=== PATIENT | male | born 1990 | race Caucasian/White ===

== ENCOUNTER 2017-03-27 10:15 | Inpatient (IN) | payer OTHER ==
[2017-03-27 11:20] VITALS: BMI 20.6
--- NOTE | 2017-03-27 15:38 | HP ---
COWS - Scale Resting Pulse: 0= [place] 80 or Below Sweatin=Flushed/Facial Moisture Restless Observation: 1= Difficult to Sit Still Pupil Size: 2= Moderately Dilated Bone or Joint Aches: 2= Severe Diffuse Aches Runny Nose/ Eye Tearin= Runny Nose/Eyes GI Upset > 30mins: 2= Nausea/Diarrhea Tremor Observation: 2= Slight Tremor Visible Yawning Observation: 1= 1-2x During Session Anxiety or Irritability: 2=Irritable/Anxious Goose Flesh Skin: 0=Smooth Skin COWS Score: 16 Admission ROS S - HPI Chief Complaint: Withdrawal sx. Allergies/Adverse Reactions: Allergies Allergy/AdvReac Type Severity Reaction Status Date / Time Fish Containing Products Allergy Severe Swelling Verified 03/27/17 15:32 History of Present Illness: 27 y/o man with a long hx. of heroin dependence is admitted for detox.Pt. has been in previous detox,reports > 6 months drug free. Exam Limitations: No Limitations - Ebola screening Have you traveled outside of the country in the last 21 days: No Have you had contact with anyone from an Ebola affected area: No Have you been sick,other than usual withdrawal symptoms: No Do you have a fever: No - Review of Systems Constitutional: Diaphoresis EENT: reports: Nose Congestion Respiratory: reports: Cough GI: reports: Diarrhea, Nausea, Abdominal cramping : reports: No Symptoms Reported Musculoskeletal: reports: Muscle Pain Integumentary: reports: Sweating Endocrine: reports: No Symptoms Reported Hematology: reports: No Symptoms Reported Psychiatric: reports: No Sypmtoms Reported Other Systems: Reviewed and Negative Patient History - Patient Medical History Hx Anemia: No Hx Asthma: Yes (INTUBATED IN CHILDHOOD ) Hx Chronic Obstructive Pulmonary Disease (COPD): No Hx Cancer: No Hx Cardiac Disorders: No Hx Congestive Heart Failure: No Hx Hypertension: No Hx Hypercholesterolemia: No Hx Pacemaker: No HX Cerebrovascular Accident: No Hx Seizures: No Hx Dementia: No Hx Diabetes: No Hx Gastrointestinal Disorders: No Hx Liver Disease: No Hx Genitourinary Disorders: No Hx Sexually Transmitted Disorders: No Hx Renal Disease (ESRD): No Hx Thyroid Disease: No Hx Human Immunodeficiency Virus (HIV): No Hx Hepatitis C: No Hx Depression: Yes Hx Suicide Attempt: No Hx Bipolar Disorder: Yes Hx Schizophrenia: No - Patient Surgical History Past Surgical History: No Hx Neurologic Surgery: No Hx Cataract Extraction: No Hx Cardiac Surgery: No Hx Lung Surgery: No Hx Breast Surgery: No Hx Breast Biopsy: No Hx Abdominal Surgery: No Hx Appendectomy: No Hx Cholecystectomy: No Hx Genitourinary Surgery: No Hx Section: No Hx Orthopedic Surgery: No Anesthesia Reaction: No - PPD History Previous Implant?: Yes Documented Results: Negative w/proof Date: 08/14/16 PPD to be Administered?: No - Smoking Cessation Smoking history: Current every day smoker Have you smoked in the past 12 months: Yes Aproximately how many cigarettes per day: 20 Cigars Per Day: 0 Hx Chewing Tobacco Use: No Initiated information on smoking cessation: Yes 'Breaking Loose' booklet given: 03/27/17 - Substance & Tx. History Hx Alcohol Use: No Substance Use Type: Heroin Hx Substance Use Treatment: Yes (Detox) - Substances Abused Heroin Route: Inhalation Frequency: Daily Amount used: 12 bags Age of first use: 24 Date of Last Use: 03/27/17 Family Disease History - Family Disease History Family Disease History: Heart Disease: Grandparent, Other: Mother (bipolar ) Admission Physical Exam [facility] - Vital Signs Vital Signs: Vital Signs - 24 hr 03/27/17 11:11 Temperature 96.2 F L Pulse Rate 67 Respiratory 18 Rate Blood Pressure 114/61 - Physical General Appearance: Yes: Irritable, Sweating, Anxious HEENTM: Yes: Nasal Congestion, Rhinorrhea Respiratory: Yes: Chest Non-Tender, Wheezing (Mild expiratory) Neck: Yes: Supple Breast: Yes: Breast Exam Deferred Cardiology: Yes: Regular Rhythm, Regular Rate, S1, S2 Abdominal: Yes: Normal Bowel Sounds, Non Tender, Soft Genitourinary: Yes: Within Normal Limits Back: Yes: Within Normal Limits Musculoskeletal: Yes: Within Normal Limits Extremities: Yes: Tremors Neurological: Yes: Fully Oriented, Alert Integumentary: Yes: Diaphoresis Lymphatic: Yes: Within Normal Limits - Diagnostic (1) Opioid dependence with withdrawal Current Visit: No Status: Acute (2) Asthma Current Visit: Yes Status: Chronic Qualifiers: Asthma severity: mild intermittent Asthma complication type: uncomplicated Qualified Code(s): J45.20 - Mild intermittent asthma, uncomplicated Cleared for Admission [facility] - Detox or Rehab [facility] Level of Care: Medically Managed Detox Regimen/Protocol: Methadone [facility] Breath Alcohol Content Breath Alcohol Content: 0 Urine Drug Screen - Results Drug Screen Negative: No Urine Drug Screen Results: THC-Marijuana, OPI-Opiates, OXY-Oxycodone
[2017-03-27] MEDS ORDERED: guaiFENesin/D-METHORPHAN HB 10 ML UNIT-DOSE CUPS PO PRN (15:41)
[2017-03-27] MEDS ORDERED: MAGNESIUM HYDROX 2400MG/30ML ORAL SUSPENSION 30 ML CUP PO PRN (15:41)
[2017-03-27] MEDS ORDERED: NICOTINE POLACRILEX 2 MG GUM BC PRN (15:41)
[2017-03-27] MEDS ORDERED: LOPERAMIDE HCL 2 MG CAPSULE PO PRN (15:41)
[2017-03-27] MEDS ORDERED: MAGNESIUM CITRATE 300 ML BOTTLE PO PRN (15:41)
[2017-03-27] MEDS ORDERED: ACETAMINOPHEN 325 MG TABLET (FP) PO PRN (15:41)
[2017-03-27] MEDS ORDERED: MENTHOL/PHENOL 1 EACH UD MM PRN (15:41)
[2017-03-27] MEDS ORDERED: P-EPHED 60MG/TRIPROLIDI 2.5MG TABLET PO PRN (15:41)
[2017-03-27] MEDS ORDERED: IBUPROFEN 400 MG TABLET (FP) PO PRN (15:41)
[2017-03-27] MEDS ORDERED: METHADONE HCL 10 MG TABLET (FOR DETOX USE ONLY) PO ONE ×2 (15:44→23:00)
[2017-03-27] MEDS ORDERED: ALBUTEROL SO4 6.7 GM HFA INHALER IH PRN (15:46)
[2017-03-27] MEDS ORDERED: ALBUTEROL SO4 2.5/IPRATROPIUM 0.5 INH SOL 3 ML VIAL.NEB. NEB ONE (16:03)
[2017-03-27] MEDS ORDERED: ALBUTEROL SO4 2.5/IPRATROPIUM 0.5 INH SOL 3 ML VIAL.NEB. NEB PRN (16:03)
[2017-03-27] MEDS: diazePAM 5 MG TABLET PO PRN ×2 (16:48→22:13)
[2017-03-27] MEDS: NICOTINE 21 MG/24 HOURS TOPICAL PATCH TD SCH (16:54)
[2017-03-27 17:20] LABS: URINE APPEARANCE CLEAR; URINE BILIRUBIN NEGATIVE (NEGATIVE); URINE BLOOD NEGATIVE (NEGATIVE); URINE COLOR DKYELLOW; URINE GLUCOSE (UA) NEGATIVE (NEGATIVE); URINE KETONE TRACE (NEGATIVE); URINE LEUK ESTERASE NEGATIVE (NEGATIVE); URINE NITRITE NEGATIVE (NEGATIVE); URINE PROTEIN 1+ (NEGATIVE); URINE UROBILINOGEN NEGATIVE mg/dL (0.2-1.0)
[2017-03-27 17:27] LABS: URINE MUCUS MANY; URINE RBC 1 /hpf (0-3); URINE WBC 1 /hpf (3-5)
[2017-03-27] MEDS: THIAMINE HCL 100 MG TABLET (FP) PO SCH (22:13)
[2017-03-27] MEDS: diphenhydrAMINE HCL 50 MG CAPSULE PO PRN (22:14)
[2017-03-28] MEDS: diazePAM 5 MG TABLET PO PRN ×4 (05:43→22:13)
[2017-03-28] MEDS ORDERED: METHADONE HCL 10 MG TABLET (FOR DETOX USE ONLY) PO ONE (10:00)
[2017-03-28] MEDS: PRENATAL VITAMINS W/ FOLIC ACID TABLET (FP) PO SCH (10:06)
[2017-03-28] MEDS: NICOTINE 21 MG/24 HOURS TOPICAL PATCH TD SCH (10:07)
[2017-03-28 10:30] LABS: ALBUMIN 3.7 g/dl (3.4-5.0); ANION GAP 6 (8-16); BILIRUBIN,TOTAL 0.4 mg/dL (0.2-1.0); CALCIUM 8.4 mg/dL (8.5-10.1); CO2 29 mmol/L (21-32); GLUCOSE,RANDOM 100 mg/dL (74-106); SGOT/AST 15 U/L (15-37); SGPT/ALT 20 U/L (12-78); TOT PROT 6.2 g/dl (6.4-8.2)
[2017-03-28 10:31] LABS: ALK PHOS 66 U/L (45-117)
[2017-03-28 10:36] LABS: MCHC 33.6 g/dl (32.0-35.9); MEAN CELL VOLUME 95.2 fl (80-96); MEAN PLT VOLUME 9.3 fl (7.5-11.1); PLATELET COUNT 184 K/MM3 (134-434); RDW 13.4 % (11.9-15.9); WHITE BLOOD COUNT 6.2 K/mm3 (4.0-10.0)
--- NOTE | 2017-03-28 13:59 | PN ---
S COWS - Scale Resting Pulse: 0= [place] 80 or Below Sweatin= Chills/Flushing Restless Observation: 3= Extraneous Movement Pupil Size: 1= Pupils >than Normal Bone or Joint Aches: 2= Severe Diffuse Aches Runny Nose/ Eye Tearin= Runny Nose/Eyes GI Upset > 30mins: 2= Nausea/Diarrhea Tremor Observation of Outstretched Hands: 2= Slight Tremor Visible Yawning Observation: 1= 1-2x During Session Anxiety or Irritability: 2=Irritable/Anxious Goose Flesh Skin: 0=Smooth Skin COWS Score: 16 S Progress Note (SOAP) Subjective: Sweating, chills, tremor, interrupted sleep Objective: 03/28/17 13:57 Last Vital Signs Temp Pulse Resp BP Pulse Ox 98.0 F 62 20 114/68 03/28/17 13:36 03/28/17 13:36 03/28/17 13:36 03/28/17 13:36 Laboratory Tests 03/27/17 03/28/17 03/28/17 16:30 07:45 07:45 WBC 6.2 D RBC 4.19 Hgb 13.4 Hct 39.9 MCV 95.2 MCH 32.0 MCHC 33.6 RDW 13.4 Plt Count 184 D MPV 9.3 Sodium 140 Potassium 3.8 Chloride 105 Carbon Dioxide 29 Anion Gap 6 L BUN 15 D Creatinine 1.0 Creat Clearance w eGFR > 60 Random Glucose 100 Calcium 8.4 L Total Bilirubin 0.4 AST 15 ALT 20 D Alkaline Phosphatase 66 Total Protein 6.2 L Albumin 3.7 Urine Color Dkyellow Urine Appearance Clear Urine pH 6.0 Ur Specific [place] >= 1.030 H Urine Protein 1+ H Urine Glucose (UA) Negative Urine Ketones Trace H Urine Blood Negative Urine Nitrite Negative Urine Bilirubin Negative Urine Urobilinogen Negative Ur Leukocyte Esterase Negative Urine RBC 1 Urine WBC 1 Urine Mucus Many RPR Titer 03/28/17 07:45 WBC RBC Hgb Hct MCV MCH MCHC RDW Plt Count MPV Sodium Potassium Chloride Carbon Dioxide Anion Gap BUN Creatinine Creat Clearance w eGFR Random Glucose Calcium Total Bilirubin AST ALT Alkaline Phosphatase Total Protein Albumin Urine Color Urine Appearance Urine pH Ur Specific [place] Urine Protein Urine Glucose (UA) Urine Ketones Urine Blood Urine Nitrite Urine Bilirubin Urine Urobilinogen Ur Leukocyte Esterase Urine RBC Urine WBC Urine Mucus RPR Titer Nonreactive Labs noted: abnormal UA Assessment: 03/28/17 13:58 Withdrawal symptoms Noted with abnormal UA Plan: Continue detox Abnormal UA: encouraged to drink lots of water, repeat UA
[2017-03-28 19:23] LABS: URINE APPEARANCE CLEAR; URINE BILIRUBIN NEGATIVE (NEGATIVE); URINE BLOOD NEGATIVE (NEGATIVE); URINE COLOR YELLOW; URINE GLUCOSE (UA) NEGATIVE (NEGATIVE); URINE KETONE NEGATIVE (NEGATIVE); URINE LEUK ESTERASE TRACE (NEGATIVE); URINE NITRITE NEGATIVE (NEGATIVE); URINE PROTEIN NEGATIVE (NEGATIVE); URINE UROBILINOGEN NEGATIVE mg/dL (0.2-1.0)
[2017-03-28 19:26] LABS: URINE MUCUS RARE; URINE RBC <1 /hpf (0-3); URINE WBC 2 /hpf (3-5)
[2017-03-28] MEDS: THIAMINE HCL 100 MG TABLET (FP) PO SCH (22:13)
[2017-03-28] MEDS: diphenhydrAMINE HCL 50 MG CAPSULE PO PRN (22:13)
[2017-03-29] MEDS: diazePAM 5 MG TABLET PO PRN ×5 (05:54→23:49)
--- NOTE | 2017-03-29 09:59 | EKG ---
Test Reason : Blood Pressure : / mmHG Vent. Rate : 055 BPM Atrial Rate : 055 BPM P-R Int : 186 ms QRS Dur : 088 ms QT Int : 436 ms P-R-T Axes : 070 089 067 degrees QTc Int : 417 ms SINUS BRADYCARDIA OTHERWISE NORMAL ECG NO PREVIOUS ECGS AVAILABLE Confirmed by JOSE CABRERA MD ([id number]) on 03/29/2017 9:58:45 AM Referred By: Confirmed By:JOSE CABRERA MD
[2017-03-29] MEDS ORDERED: METHADONE HCL 5 MG TABLET (FOR DETOX USE ONLY) PO ONE (10:00)
[2017-03-29] MEDS: PRENATAL VITAMINS W/ FOLIC ACID TABLET (FP) PO SCH (10:10)
[2017-03-29] MEDS: NICOTINE 21 MG/24 HOURS TOPICAL PATCH TD SCH (10:10)
--- NOTE | 2017-03-29 11:04 | CONSULT ---
[facility] Psychiatric Consult - Data Date of interview: 03/29/17 Admission source: [facility] Identifying data: Readmission to [facility] for this 27 y/o male seeking detoxification treatment on for heroin and marijuana dependence.Patient is now without children,domiciled,unemployed and dependent on relatives/friends for financial support. Substance Abuse History: Patient admits to heroin abuse since age 24 (12 bags daily via intranasal route) and marijuana since age 11 (variable amount daily) .Last used on 03/27/17.Smokes one pack of cigarettes daily. Medical History: Bronchial asthma. Psychiatric History: No history of psychiatric hospitalizations.Diagnosed with Bipolar Disorder and ADHD.Patient reports that he " saw a psychiatrist for the first time at age [age] " because of behavioral disturbances.Was prescribed depakote 1000 mg po bid and seroquel 200 mg/hs.Known to Clarissa Jama ([id number]) .Mr Payne informs that he has not taken his medications " for months ".No recent history of OPD care.Patient is totally lost to follow up but he is now expressing the wish to resume psychotropic medications.Denies history of suicide attempts. Physical/Sexual Abuse/Trauma History: Patient denies. Additional Comment: Urine Drug Screen Results: THC-Marijuana, OPI-Opiates, OXY- Oxycodone.Noted. Mental Status Exam - Mental Status Exam Alert and Oriented to: Time, Place, Person Cognitive Function: Good Patient Appearance: Well Groomed (tattoo on right forearm) Mood: Withdrawn, Irritable Affect: Mood Congruent, Constricted Patient Behavior: Fatigued, Cooperative Speech Pattern: Clear Voice Loudness: Normal Thought Process: Goal Oriented Thought Disorder: Not Present Hallucinations: Denies Suicidal Ideation: Denies Homicidal Ideation: Denies Insight/Judgement: Poor Sleep: Poorly, Difficulty falling asleep Appetite: Good Muscle strength/Tone: Normal Gait/Station: Normal Psychiatric Findings - Problem List ([place] 1, 2,3) (1) Opioid dependence with withdrawal Current Visit: Yes Status: Acute (2) Marijuana dependence Current Visit: Yes Status: Acute (3) Nicotine dependence Current Visit: Yes Status: Acute Qualifiers: Nicotine product type: cigarettes Substance use status: uncomplicated Qualified Code(s): F17.210 - Nicotine dependence, cigarettes, uncomplicated (4) Substance induced mood disorder Current Visit: Yes Status: Acute (5) Bipolar disorder Current Visit: Yes Status: Chronic Comment: Patient's self-report. (6) Asthma Current Visit: Yes Status: Chronic Qualifiers: Asthma severity: mild intermittent Asthma complication type: uncomplicated Qualified Code(s): J45.20 - Mild intermittent asthma, uncomplicated (7) Insomnia Current Visit: Yes Status: Chronic - Initial Treatment Plan Initial Treatment Plan: Psychoeducation is provided in this session.Detoxification is in progress.Medications : depakote 500 mg po bid + seroquel 50 mg po hs.Titration to follow if no side effects (oversedation).Side effects/benefits discussed with the patient.Mr Payne is made aware of potential for blood dyscrasias,alopecia,weight gain,liver dysfunction (depakote ) and oversedation/falls,abnormal involuntary movements,metabolic syndrome ( seroquel).He is in agreement with this careplan.Observation.Valproic acid level is requested.Will follow.
--- NOTE | 2017-03-29 12:17 | PN ---
BHS COWS - Scale Resting Pulse: 0= [place] 80 or Below Sweatin=Flushed/Facial Moisture Restless Observation: 1= Difficult to Sit Still Pupil Size: 0= Normal to Room Light Bone or Joint Aches: 2= Severe Diffuse Aches Runny Nose/ Eye Tearin= Runny Nose/Eyes GI Upset > 30mins: 2= Nausea/Diarrhea Tremor Observation of Outstretched Hands: 2= Slight Tremor Visible Yawning Observation: 1= 1-2x During Session Anxiety or Irritability: 2=Irritable/Anxious Goose Flesh Skin: 0=Smooth Skin COWS Score: 14 BHS Progress Note (SOAP) Subjective: Anxiety,tremors,sweating,interrupted sleep,restless Objective: 03/29/17 12:18 Vital Signs - 8 hr 03/29/17 09:17 Temperature 98.1 F Pulse Rate 65 Respiratory 16 Rate Blood Pressure 124/73 Laboratory Last Values WBC 6.2 K/mm3 (4.0-10.0) D 03/28/17 07:45 RBC 4.19 M/mm3 (4.00-5.60) 03/28/17 07:45 Hgb 13.4 GM/dL (11.7-16.9) 03/28/17 07:45 Hct 39.9 % (35.4-49) 03/28/17 07:45 MCV 95.2 fl (80-96) 03/28/17 07:45 MCH 32.0 pg (25.7-33.7) 03/28/17 07:45 MCHC 33.6 g/dl (32.0-35.9) 03/28/17 07:45 RDW 13.4 % (11.9-15.9) 03/28/17 07:45 Plt Count 184 K/MM3 (134-434) D 03/28/17 07:45 MPV 9.3 fl (7.5-11.1) 03/28/17 07:45 Sodium 140 mmol/L (136-145) 03/28/17 07:45 Potassium 3.8 mmol/L (3.5-5.1) 03/28/17 07:45 Chloride 105 mmol/L (98-107) 03/28/17 07:45 Carbon Dioxide 29 mmol/L (21-32) 03/28/17 07:45 Anion Gap 6 (8-16) L 03/28/17 07:45 BUN 15 mg/dL (7-18) D 03/28/17 07:45 Creatinine 1.0 mg/dL (0.7-1.3) 03/28/17 07:45 Creat Clearance w eGFR > 60 (>60) 03/28/17 07:45 Random Glucose 100 mg/dL (74-106) 03/28/17 07:45 Calcium 8.4 mg/dL (8.5-10.1) L 03/28/17 07:45 Total Bilirubin 0.4 mg/dL (0.2-1.0) 03/28/17 07:45 AST 15 U/L (15-37) 03/28/17 07:45 ALT 20 U/L (12-78) D 03/28/17 07:45 Alkaline Phosphatase 66 U/L (45-117) 03/28/17 07:45 Total Protein 6.2 g/dl (6.4-8.2) L 03/28/17 07:45 Albumin 3.7 g/dl (3.4-5.0) 03/28/17 07:45 Urine Color Yellow 03/28/17 19:16 Urine Appearance Clear 03/28/17 19:16 Urine pH 7.0 (5.0-8.0) 03/28/17 19:16 Ur Specific [place] 1.015 (1.005-1.025) 03/28/17 19:16 Urine Protein Negative (NEGATIVE) 03/28/17 19:16 Urine Glucose (UA) Negative (NEGATIVE) 03/28/17 19:16 Urine Ketones Negative (NEGATIVE) 03/28/17 19:16 Urine Blood Negative (NEGATIVE) 03/28/17 19:16 Urine Nitrite Negative (NEGATIVE) 03/28/17 19:16 Urine Bilirubin Negative (NEGATIVE) 03/28/17 19:16 Urine Urobilinogen Negative mg/dL (0.2-1.0) 03/28/17 19:16 Ur Leukocyte Esterase Trace (NEGATIVE) 03/28/17 19:16 Urine RBC <1 /hpf (0-3) 03/28/17 19:16 Urine WBC 2 /hpf (3-5) 03/28/17 19:16 Ur Epithelial Cells Rare /hpf (FEW) 03/28/17 19:16 Urine Mucus Rare 03/28/17 19:16 RPR Titer Nonreactive (NONREACTIVE) 03/28/17 07:45 labs noted Assessment: 03/29/17 12:19 Withdrawal sx. Plan: Continue detox
[2017-03-29] MEDS: diphenhydrAMINE HCL 25 MG CAPSULE (FP) PO PRN (13:39)
[2017-03-29] MEDS ORDERED: QUEtiapine FUMARATE 50 MG TABLET PO SCH (22:00)
[2017-03-29] MEDS: DIVALPROEX SODIUM 500 MG TABLET E.C. PO SCH (22:24)
[2017-03-29] MEDS: diphenhydrAMINE HCL 50 MG CAPSULE PO PRN (22:24)
[2017-03-29] MEDS: THIAMINE HCL 100 MG TABLET (FP) PO SCH (22:24)
[2017-03-29] MEDS: QUEtiapine FUMARATE 50 MG TABLET PO SCH (22:24)
[2017-03-30] MEDS: diazePAM 5 MG TABLET PO PRN ×3 (04:12→12:44)
[2017-03-30] MEDS ORDERED: METHADONE HCL 5 MG TABLET (FOR DETOX USE ONLY) PO ONE (10:00)
[2017-03-30] MEDS: DIVALPROEX SODIUM 500 MG TABLET E.C. PO SCH ×2 (10:06→22:09)
[2017-03-30] MEDS: NICOTINE 21 MG/24 HOURS TOPICAL PATCH TD SCH (10:06)
[2017-03-30] MEDS: PRENATAL VITAMINS W/ FOLIC ACID TABLET (FP) PO SCH (10:06)
[2017-03-30] MEDS ORDERED: COLLOIDAL OATMEAL 1 BAR EACH TP PRN (10:42)
--- NOTE | 2017-03-30 10:42 | PN ---
BHS Progress Note (SOAP) Subjective: Sweating,interrupted sleep,restless.c/o itching after using soap. Objective: 03/30/17 10:41 Vital Signs - 8 hr 03/30/17 03/30/17 03/30/17 03:30 06:10 09:54 Temperature 97.3 F L 97.9 F Pulse Rate 82 87 Respiratory 18 16 18 Rate Blood Pressure 118/72 124/81 Vital Signs - 8 hr 03/30/17 03/30/17 03/30/17 03:30 06:10 09:54 Temperature 97.3 F L 97.9 F Pulse Rate 82 87 Respiratory 18 16 18 Rate Blood Pressure 118/72 124/81 Laboratory Last Values WBC 6.2 K/mm3 (4.0-10.0) D 03/28/17 07:45 RBC 4.19 M/mm3 (4.00-5.60) 03/28/17 07:45 Hgb 13.4 GM/dL (11.7-16.9) 03/28/17 07:45 Hct 39.9 % (35.4-49) 03/28/17 07:45 MCV 95.2 fl (80-96) 03/28/17 07:45 MCH 32.0 pg (25.7-33.7) 03/28/17 07:45 MCHC 33.6 g/dl (32.0-35.9) 03/28/17 07:45 RDW 13.4 % (11.9-15.9) 03/28/17 07:45 Plt Count 184 K/MM3 (134-434) D 03/28/17 07:45 MPV 9.3 fl (7.5-11.1) 03/28/17 07:45 Sodium 140 mmol/L (136-145) 03/28/17 07:45 Potassium 3.8 mmol/L (3.5-5.1) 03/28/17 07:45 Chloride 105 mmol/L (98-107) 03/28/17 07:45 Carbon Dioxide 29 mmol/L (21-32) 03/28/17 07:45 Anion Gap 6 (8-16) L 03/28/17 07:45 BUN 15 mg/dL (7-18) D 03/28/17 07:45 Creatinine 1.0 mg/dL (0.7-1.3) 03/28/17 07:45 Creat Clearance w eGFR > 60 (>60) 03/28/17 07:45 Random Glucose 100 mg/dL (74-106) 03/28/17 07:45 Calcium 8.4 mg/dL (8.5-10.1) L 03/28/17 07:45 Total Bilirubin 0.4 mg/dL (0.2-1.0) 03/28/17 07:45 AST 15 U/L (15-37) 03/28/17 07:45 ALT 20 U/L (12-78) D 03/28/17 07:45 Alkaline Phosphatase 66 U/L (45-117) 03/28/17 07:45 Total Protein 6.2 g/dl (6.4-8.2) L 03/28/17 07:45 Albumin 3.7 g/dl (3.4-5.0) 03/28/17 07:45 Urine Color Yellow 03/28/17 19:16 Urine Appearance Clear 03/28/17 19:16 Urine pH 7.0 (5.0-8.0) 03/28/17 19:16 Ur Specific [place] 1.015 (1.005-1.025) 03/28/17 19:16 Urine Protein Negative (NEGATIVE) 03/28/17 19:16 Urine Glucose (UA) Negative (NEGATIVE) 03/28/17 19:16 Urine Ketones Negative (NEGATIVE) 03/28/17 19:16 Urine Blood Negative (NEGATIVE) 03/28/17 19:16 Urine Nitrite Negative (NEGATIVE) 03/28/17 19:16 Urine Bilirubin Negative (NEGATIVE) 03/28/17 19:16 Urine Urobilinogen Negative mg/dL (0.2-1.0) 03/28/17 19:16 Ur Leukocyte Esterase Trace (NEGATIVE) 03/28/17 19:16 Urine RBC <1 /hpf (0-3) 03/28/17 19:16 Urine WBC 2 /hpf (3-5) 03/28/17 19:16 Ur Epithelial Cells Rare /hpf (FEW) 03/28/17 19:16 Urine Mucus Rare 03/28/17 19:16 RPR Titer Nonreactive (NONREACTIVE) 03/28/17 07:45 labs noted Assessment: 03/30/17 10:41 Withdrawal sx. Plan: continue detox joano cucoap
[2017-03-30] MEDS: hydrOXYzine PAMOATE 50 MG CAPSULE (FP) PO PRN ×2 (17:49→22:11)
[2017-03-30] MEDS: QUEtiapine FUMARATE 50 MG TABLET PO SCH (22:09)
[2017-03-30] MEDS: THIAMINE HCL 100 MG TABLET (FP) PO SCH (22:09)
[2017-03-31] MEDS: hydrOXYzine PAMOATE 50 MG CAPSULE (FP) PO PRN ×4 (02:53→17:19)
[2017-03-31] MEDS ORDERED: METHADONE HCL 10 MG TABLET (FOR DETOX USE ONLY) PO ONE (10:00)
[2017-03-31] MEDS: PRENATAL VITAMINS W/ FOLIC ACID TABLET (FP) PO SCH (10:14)
[2017-03-31] MEDS: NICOTINE 21 MG/24 HOURS TOPICAL PATCH TD SCH (10:14)
[2017-03-31] MEDS: DIVALPROEX SODIUM 500 MG TABLET E.C. PO SCH ×2 (10:14→22:10)
[2017-03-31] MEDS: MAG HYDROX/AL HYDROX/SIMETH 30 ML UNIT-DOSE CUP PO PRN ×2 (14:20→23:36)
--- NOTE | 2017-03-31 14:31 | PN ---
BHS Progress Note (SOAP) Subjective: Fatigue, Interrupted sleep, Sweating, Body Aches. Objective: PT. A & O X 3. NO ACUTE DISTRESS. 03/31/17 14:29 Vital Signs Temperature 97.8 F 03/31/17 13:03 Pulse Rate 108 H 03/31/17 13:03 Respiratory Rate 20 03/31/17 13:03 Blood Pressure 126/84 03/31/17 13:03 O2 Sat by Pulse Oximetry (%) Laboratory Tests 03/27/17 03/28/17 03/28/17 16:30 07:45 07:45 WBC 6.2 D RBC 4.19 Hgb 13.4 Hct 39.9 MCV 95.2 MCH 32.0 MCHC 33.6 RDW 13.4 Plt Count 184 D MPV 9.3 Sodium 140 Potassium 3.8 Chloride 105 Carbon Dioxide 29 Anion Gap 6 L BUN 15 D Creatinine 1.0 Creat Clearance w eGFR > 60 Random Glucose 100 Calcium 8.4 L Total Bilirubin 0.4 AST 15 ALT 20 D Alkaline Phosphatase 66 Total Protein 6.2 L Albumin 3.7 Urine Color Dkyellow Urine Appearance Clear Urine pH 6.0 Ur Specific [place] >= 1.030 H Urine Protein 1+ H Urine Glucose (UA) Negative Urine Ketones Trace H Urine Blood Negative Urine Nitrite Negative Urine Bilirubin Negative Urine Urobilinogen Negative Ur Leukocyte Esterase Negative Urine RBC 1 Urine WBC 1 Ur Epithelial Cells Urine Mucus Many Valproic Acid RPR Titer 03/28/17 03/28/17 03/30/17 07:45 19:16 06:30 WBC RBC Hgb Hct MCV MCH MCHC RDW Plt Count MPV Sodium Potassium Chloride Carbon Dioxide Anion Gap BUN Creatinine Creat Clearance w eGFR Random Glucose Calcium Total Bilirubin AST ALT Alkaline Phosphatase Total Protein Albumin Urine Color Yellow Urine Appearance Clear Urine pH 7.0 Ur Specific [place] 1.015 Urine Protein Negative Urine Glucose (UA) Negative Urine Ketones Negative Urine Blood Negative Urine Nitrite Negative Urine Bilirubin Negative Urine Urobilinogen Negative Ur Leukocyte Esterase Trace Urine RBC <1 Urine WBC 2 Ur Epithelial Cells Rare Urine Mucus Rare Valproic Acid 11.321 L RPR Titer Nonreactive LABS NOTED. DR. LEO MD MADE AWARE OF VALPROIC ACID LEVEL FROM 03/30/2017. 03/31/17 14:33 Assessment: 03/31/17 14:29 WITHDRAWAL SYMPTOMS. Plan: CONTINUE DETOX.
[2017-03-31] MEDS: diphenhydrAMINE HCL 25 MG CAPSULE (FP) PO PRN (17:20)
--- NOTE | 2017-03-31 19:17 | PN ---
BHS Progress Note Note: Psychiatry Attending's note : Valproic acid level = 11. Seroquel is raised to 100 mg po hs. Well tolerated.No oversedation.
[2017-03-31] MEDS ORDERED: QUEtiapine FUMARATE 100 MG TABLET (FP) PO SCH (22:00)
[2017-03-31] MEDS: THIAMINE HCL 100 MG TABLET (FP) PO SCH (22:10)
[2017-03-31] MEDS: diphenhydrAMINE HCL 50 MG CAPSULE PO PRN (22:11)
[2017-04-01] MEDS ORDERED: PANTOPRAZOLE 40 MG TABLET (FP) PO ONE (04:16)
[2017-04-01] MEDS: hydrOXYzine PAMOATE 50 MG CAPSULE (FP) PO PRN (04:16)
[2017-04-01] MEDS ORDERED: METHADONE HCL 5 MG TABLET (FOR DETOX USE ONLY) PO ONE (06:00)
[2017-04-01 06:31] VITALS: BP 119/81; PULSE 87; TEMP 95.8
--- NOTE | 2017-04-01 12:20 | DS ---
[facility] Detox Discharge Summary Admission Date: 03/27/17 Discharge Date: 04/01/17 - History Present History: Opioid Dependence Additional Comments: PATIENT ELECTING TO GO HOME, WILL ATTEND OUTPATIENT MEETINGS. PATIENT ADVISED TO FOLLOW-UP THERE FOR AFTERCARE PER DISCHARGE ARRANGEMENT. Pertinent Past History: Asthma, Bipolar Disorder, Depression. - Physical Exam Results Vital Signs: Vital Signs Temperature 95.8 F L 04/01/17 06:31 Pulse Rate 87 04/01/17 06:31 Respiratory Rate 16 04/01/17 06:31 Blood Pressure 119/81 04/01/17 06:31 O2 Sat by Pulse Oximetry (%) Pertinent Admission Physical Exam Findings: WITHDRAWAL SYMPTOMS. Laboratory Tests 03/27/17 03/28/17 03/28/17 16:30 07:45 07:45 WBC 6.2 D RBC 4.19 Hgb 13.4 Hct 39.9 MCV 95.2 MCH 32.0 MCHC 33.6 RDW 13.4 Plt Count 184 D MPV 9.3 Sodium 140 Potassium 3.8 Chloride 105 Carbon Dioxide 29 Anion Gap 6 L BUN 15 D Creatinine 1.0 Creat Clearance w eGFR > 60 Random Glucose 100 Calcium 8.4 L Total Bilirubin 0.4 AST 15 ALT 20 D Alkaline Phosphatase 66 Total Protein 6.2 L Albumin 3.7 Urine Color Dkyellow Urine Appearance Clear Urine pH 6.0 Ur Specific [place] >= 1.030 H Urine Protein 1+ H Urine Glucose (UA) Negative Urine Ketones Trace H Urine Blood Negative Urine Nitrite Negative Urine Bilirubin Negative Urine Urobilinogen Negative Ur Leukocyte Esterase Negative Urine RBC 1 Urine WBC 1 Ur Epithelial Cells Urine Mucus Many Valproic Acid RPR Titer 03/28/17 03/28/17 03/30/17 07:45 19:16 06:30 WBC RBC Hgb Hct MCV MCH MCHC RDW Plt Count MPV Sodium Potassium Chloride Carbon Dioxide Anion Gap BUN Creatinine Creat Clearance w eGFR Random Glucose Calcium Total Bilirubin AST ALT Alkaline Phosphatase Total Protein Albumin Urine Color Yellow Urine Appearance Clear Urine pH 7.0 Ur Specific [place] 1.015 Urine Protein Negative Urine Glucose (UA) Negative Urine Ketones Negative Urine Blood Negative Urine Nitrite Negative Urine Bilirubin Negative Urine Urobilinogen Negative Ur Leukocyte Esterase Trace Urine RBC <1 Urine WBC 2 Ur Epithelial Cells Rare Urine Mucus Rare Valproic Acid 11.321 L RPR Titer Nonreactive LABS NOTED. - Treatment Hospital Course: Detox Protocol Followed, Detoxed Safely, Responded well, Discharged Condition Good Patient has Accepted a Rehab Referral to: PT. GOING HOME; WILL ATTEND LOCAL SUPPORT GROUP MEETINGS. - Medication Discharge Medications: Ambulatory Orders Albuterol Sulfate Inhaler - [Ventolin Hfa Inhaler -] 2 inh PO Q4H PRN 08/12/16 Divalproex [Depakote -] 1,000 mg PO DAILY #60 tablet.[email or web address] 08/14/16 Quetiapine Fumarate [Seroquel] 100 tab PO HS #30 tablet 08/14/16 Divalproex Sodium 500 mg PO HS #60 tablet. 03/29/17 Quetiapine Fumarate [Seroquel -] 200 mg PO HS #30 tab 03/29/17 Divalproex Sodium 500 mg PO BID #60 tablet. 03/31/17 - Diagnosis (1) Marijuana dependence Status: Acute (2) Nicotine dependence Status: Chronic Qualifiers: Nicotine product type: cigarettes Substance use status: uncomplicated Qualified Code(s): F17.210 - Nicotine dependence, cigarettes, uncomplicated (3) Opioid dependence with withdrawal Status: Acute (4) Substance induced mood disorder Status: Acute (5) Asthma Status: Chronic Qualifiers: Asthma severity: mild intermittent Asthma complication type: uncomplicated Qualified Code(s): J45.20 - Mild intermittent asthma, uncomplicated (6) Insomnia Status: Chronic Qualifiers: Insomnia type: unspecified Qualified Code(s): G47.00 - Insomnia, unspecified (7) Bipolar disorder Status: Chronic Qualifiers: Active/Remission status: remission status unspecified Qualified Code (s): F31.9 - Bipolar disorder, unspecified - AMA Did Patient Leave Against Medical Advice: No
== END 2017-04-01 06:40 | disposition home or self-care (01) | DRG 773 ==
LOC: YASAS 10:15 → Y3N 15:19
PROVIDERS: ADMIT Internal Medicine; ATTEND Internal Medicine
PROC: HZ2ZZZZ Detoxification Services for Substance Abuse Treatment (ICD-10-PCS; principal; 2017-03-27)
DX: F11.23 Opioid dependence with withdrawal (principal); F12.20 Cannabis dependence, uncomplicated; F17.210 Nicotine dependence, cigarettes, uncomplicated; F19.24 Other psychoactive substance dependence with psychoactive substance-induced mood disorder; F31.9 Bipolar disorder, unspecified; J45.20 Mild intermittent asthma, uncomplicated; G47.00 Insomnia, unspecified; R82.90 Unspecified abnormal findings in urine; Z91.013 Allergy to seafood
CPT/HCPCS: 36415; 80053; 80164; 81003; 81015; 85027; 86593; 93005; 93010; 94640

== ENCOUNTER 2019-05-08 11:25 | Inpatient (IN) | payer MEDICARE, OTHER ==
[2019-05-08 14:07] VITALS: BMI 19.8
--- NOTE | 2019-05-08 15:10 | HP ---
COWS - Scale Resting Pulse: 0= [place] 80 or Below Sweatin=Flushed/Facial Moisture Restless Observation: 3= Extraneous Movement Pupil Size: 1= Pupils >than Normal Bone or Joint Aches: 1= Mild Discomfort Runny Nose/ Eye Tearin= None GI Upset > 30mins: 2= Nausea/Diarrhea Tremor Observation: 1= Tremor [place], Not Seen Yawning Observation: 1= 1-2x During Session Anxiety or Irritability: 2=Irritable/Anxious Goose Flesh Skin: 0=Smooth Skin COWS Score: 13 CIWA Score - Admission Criteria OASAS Guidelines: Admission for Medically Managed Detox: Requires at least one of the followin. CIWA greater than 12 2. Seizures within the past 24 hours 3. Delirium tremens within the past 24 hours 4. Hallucinations within the past 24 hours 5. Acute intervention needed for co occurring medical disorder 6. Acute intervention needed for co occurring psychiatric disorder 7. Severe withdrawal that cannot be handled at a lower level of care (continued vomiting, continued diarrhea, abnormal vital signs) requiring intravenous medication and/or fluids 8. Admission [facility] Chief Complaint: detox from heroin Allergies/Adverse Reactions: Allergies Allergy/AdvReac Type Severity Reaction Status Date / Time Fish Containing Products Allergy Severe Swelling Verified 05/08/19 13:56 History of Present Illness: 29M w/ pmh of asthma, bipolar disorder presenting for heroin detox. Sniffs heroin 1bundle daily. Last usage 0500. Started at 20y/o. OD'd once. Denies blackouts, seizures. MJ, 1 blunt daily. Smokes 1 ppd. Denies meth, cocaine. Denies IVDU. H/o methadone(80-120mg) 2ys prior, but did not resumed after intermediate. Substance free for up to 1yr. Incarcerated for up 1ys for drug-related crime during teenage years. Lives with friends. Not employed, but planning for pipe- fitting job. Exam Limitations: No Limitations - Ebola screening Have you traveled outside of the country in the last 21 days: No (N) Have you had contact with anyone from an Ebola affected area: No Do you have a fever: No Patient History - Patient Medical History Hx Anemia: No Hx Asthma: Yes (INTUBATED IN CHILDHOOD ) Hx Chronic Obstructive Pulmonary Disease (COPD): No Hx Cancer: No Hx Cardiac Disorders: No Hx Congestive Heart Failure: No Hx Hypertension: No Hx Hypercholesterolemia: No Hx Pacemaker: No HX Cerebrovascular Accident: No Hx Seizures: No Hx Dementia: No Hx Diabetes: No Hx Gastrointestinal Disorders: No Hx Liver Disease: No Hx Genitourinary Disorders: No Hx Sexually Transmitted Disorders: No Hx Renal Disease (ESRD): No Hx Thyroid Disease: No Hx Human Immunodeficiency Virus (HIV): No Hx Hepatitis C: No Hx Depression: Yes Hx Suicide Attempt: No Hx Bipolar Disorder: Yes Hx Schizophrenia: No - Patient Surgical History Past Surgical History: No Hx Neurologic Surgery: No Hx Cataract Extraction: No Hx Cardiac Surgery: No Hx Lung Surgery: No Hx Breast Surgery: No Hx Breast Biopsy: No Hx Abdominal Surgery: No Hx Appendectomy: No Hx Cholecystectomy: No Hx Genitourinary Surgery: No Hx Section: No Hx Orthopedic Surgery: No Anesthesia Reaction: No - PPD History Date: 08/14/16 - Smoking Cessation Smoking history: Current every day smoker Have you smoked in the past 12 months: Yes Aproximately how many cigarettes per day: 20 Cigars Per Day: 0 Hx Chewing Tobacco Use: No Initiated information on smoking cessation: No - Substance & Tx. History Hx Alcohol Use: No Hx Substance Use: Yes Substance Use Type: Heroin, Marijuana - Substances abused Heroin Substance route: Inhalation Frequency: Daily Amount used: 1 bundle Age of first use: 20 Date of last use: 05/08/19 Marijuana/Hashish Substance route: Smoking Frequency: Daily Amount used: $20 Age of first use: 9 Date of last use: 05/08/19 Family Disease History - Family Disease History Family Disease History: Heart Disease: Grandparent (grandfather w/ [place], grandfather with skin CA), Father (murmur), Other: Mother (bipolar ) Admission Physical Exam S - Vital Signs Vital Signs: Vital Signs - 24 hr 05/08/19 05/08/19 05/08/19 13:56 14:30 14:41 Temperature 99.1 F 99.1 F 99.1 F Pulse Rate 76 76 76 Respiratory 18 18 18 Rate Blood Pressure 121/69 121/69 121/69 - Physical General Appearance: Yes: Cachetic HEENTM: Yes: Other (severe temporal wasting). No: Pale Conjunctivae R, Pale Conjunctivae L, Scleral Ictenus R, Scleral Ictenus L Respiratory: Yes: Wheezing (inspiratory and expiratory wheezes). No: Labored Respiration, No Accessory Muscle Use Neck: Yes: Supple, Trachea in good position Cardiology: Yes: Regular Rate, S1, S2. No: Irregularly Irregular Abdominal: Yes: Non Tender, Soft Extremities: Yes: Non-Tender. No: Tremors Neurological: Yes: Fully Oriented, Alert Breathalyzer - Breathalyzer Breathalyzer: 0 Urine Drug Screen - Test Device Lot number: [id number] Expiration date: 01/27/21 - Control Is test valid?: Yes - Results Drug screen NEGATIVE: Yes Urine drug screen results: THC-Marijuana, MOP-Opiates, OXY-Oxycodone Inpatient Rehab Admission - Rehab Decision to Admit Inpatient rehab admission?: No
[2019-05-08] MEDS ORDERED: MENTHOL/PHENOL 1 EACH UD MM PRN (15:24)
[2019-05-08] MEDS ORDERED: MAGNESIUM CITRATE 300 ML BOTTLE PO PRN (15:24)
[2019-05-08] MEDS ORDERED: MAGNESIUM HYDROX 2400MG/30ML ORAL SUSPENSION 30 ML CUP PO PRN (15:24)
[2019-05-08] MEDS ORDERED: IBUPROFEN 400 MG TABLET (FP) PO PRN (15:24)
[2019-05-08] MEDS ORDERED: BISMUTH SUBSALICYLATE 524 MG/30 ML UD PO PRN (15:24)
[2019-05-08] MEDS ORDERED: MAG HYDROX/AL HYDROX/SIMETH 30 ML UNIT-DOSE CUP PO PRN (15:24)
[2019-05-08] MEDS ORDERED: cloNIDine HCL 0.1 MG TABLET PO PRN (15:24)
[2019-05-08] MEDS ORDERED: ACETAMINOPHEN 325 MG TABLET (FP) PO PRN ×2 (15:24)
[2019-05-08] MEDS ORDERED: ALBUTEROL SO4 8 GM HFA INHALER IH PRN (15:30)
[2019-05-08] MEDS ORDERED: ALBUTEROL SO4 2.5/IPRATROPIUM 0.5 INH SOL 3 ML VIAL.NEB. NEB PRN (15:36)
--- NOTE | 2019-05-08 15:54 | PN ---
Teaching Attending Note Name of Resident: Nestor Skelton ATTENDING PHYSICIAN STATEMENT I saw and evaluated the patient. I reviewed the resident's note and discussed the case with the resident. I agree with the resident's findings and plan as documented. SUBJECTIVE: this 29 years old male with heroin dependence seeking detox withdrawal symptom, history of asthma OBJECTIVE: Vital Signs Temperature 99.1 F 05/08/19 14:41 Pulse Rate 76 05/08/19 14:41 Respiratory Rate 18 05/08/19 14:41 Blood Pressure 121/69 05/08/19 14:41 O2 Sat by Pulse Oximetry (%) witdrawal symptom ASSESSMENT AND PLAN: patient need inpatient detox methadone regimen,medically managed detox,also acute exacerbation of asthma, will give albuterol inhaler,duoneb nebulizer,prednisone taper,out patient program after detox
[2019-05-08] MEDS ORDERED: METHADONE HCL 10 MG TABLET (FOR DETOX USE ONLY) PO ONE (17:00)
[2019-05-08] MEDS ORDERED: predniSONE 20 MG TABLET (UD) PO ONE (22:00)
[2019-05-08] MEDS: hydrOXYzine PAMOATE 25 MG CAPSULE (FP) PO PRN (22:09)
[2019-05-08] MEDS: THIAMINE HCL 100 MG TABLET (FP) PO SCH (22:09)
[2019-05-08] MEDS: MELATONIN 5 MG TABLETS PO PRN (22:10)
[2019-05-09] MEDS ORDERED: METHADONE (DETOX) 20 MG, METHADONE (DETOX) 5 MG PO ONE (10:00)
[2019-05-09] MEDS ORDERED: predniSONE 10 MG TABLET (UD) PO ONE (10:00)
[2019-05-09 10:04] LABS: HEMATOCRIT 42.6 % (35.4-49); HEMOGLOBIN 13.8 GM/dL (11.7-16.9); MCH 30.3 pg (25.7-33.7); MCHC 32.5 g/dl (32.0-35.9); MEAN CELL VOLUME 93.2 fl (80-96); MEAN PLT VOLUME 8.9 fl (7.5-11.1); PLATELET COUNT 273 K/MM3 (134-434); RBC 4.57 M/mm3 (4.00-5.60); WHITE BLOOD COUNT 6.3 K/mm3 (4.0-10.0)
[2019-05-09 10:18] LABS: ALBUMIN 3.7 g/dl (3.4-5.0); BILIRUBIN,TOTAL 0.3 mg/dL (0.2-1); BLOOD UREA NITROGEN 10.2 mg/dL (7-18); CALCIUM 8.9 mg/dL (8.5-10.1); CREATININE 0.8 mg/dL (0.55-1.3); POTASSIUM 4.9 mmol/L (3.5-5.1); TOT PROT 6.9 g/dl (6.4-8.2)
[2019-05-09] MEDS: NICOTINE 14 MG/24 HOURS TOPICAL PATCH TD SCH (10:22)
[2019-05-09] MEDS: PRENATAL VITAMINS W/ FOLIC ACID TABLET (FP) PO SCH (10:23)
--- NOTE | 2019-05-09 10:40 | PN ---
BHS COWS - Scale Resting Pulse: 0= [place] 80 or Below Sweatin= Chills/Flushing Restless Observation: 1= Difficult to Sit Still Pupil Size: 0= Normal to Room Light Bone or Joint Aches: 2= Severe Diffuse Aches Runny Nose/ Eye Tearin= Nasal Congestion GI Upset > 30mins: 0= None Tremor Observation of Outstretched Hands: 1= Tremor [place], Not Seen Yawning Observation: 2= >3x During Session Anxiety or Irritability: 2=Irritable/Anxious Goose Flesh Skin: 0=Smooth Skin COWS Score: 10 BHS Progress Note (SOAP) Subjective: agitation sweats irritable shakes interrupted sleep Objective: 05/09/19 10:38 Vital Signs Temperature 98.1 F 05/09/19 09:49 Pulse Rate 64 05/09/19 09:49 Respiratory Rate 18 05/09/19 09:49 Blood Pressure 128/77 05/09/19 09:49 O2 Sat by Pulse Oximetry (%) Laboratory Tests 05/09/19 05/09/19 08:00 08:00 WBC 6.3 RBC 4.57 Hgb 13.8 Hct 42.6 MCV 93.2 MCH 30.3 MCHC 32.5 RDW 14.0 Plt Count 273 D MPV 8.9 Sodium 139 Potassium 4.9 Chloride 106 Carbon Dioxide 28 Anion Gap 6 L BUN 10.2 Creatinine 0.8 Est GFR (CKD-EPI)AfAm 139.91 Est GFR (CKD-EPI)NonAf 120.72 Random Glucose 100 Calcium 8.9 Total Bilirubin 0.3 AST 10 L ALT 21 Alkaline Phosphatase 97 Total Protein 6.9 Albumin 3.7 labs noted aaox3 ambulating no acute distress Assessment: 05/09/19 11:25 withdrawal sx Plan: continue detox increase fluids
[2019-05-09] MEDS ORDERED: METHADONE HCL 10 MG TABLET (FOR DETOX USE ONLY) ONE (11:06)
[2019-05-09] MEDS ORDERED: METHADONE HCL 5 MG TABLET (FOR DETOX USE ONLY) ONE (11:07)
--- NOTE | 2019-05-09 12:51 | CONSULT ---
[facility] Psychiatric Consult - Data Date of interview: 05/09/19 Admission source: [facility] Identifying data: This is one of multiple admissions to [facility] for this 29 y/ o male self-referred for detoxification (heroin, marijuana). Examined at [address] [place] [address]. Patient is , no children, domiciled, unemployed and supported on odd jobs. Substance Abuse History: Confirmed by patient in this interview. Details in current [facility] report as follows : Smoking history: Current every day smoker. Have you smoked in the past 12 months: Yes. Aproximately how many cigarettes per day: 20. Cigars Per Day: 0. Hx Chewing Tobacco Use: No. Initiated information on smoking cessation: No. - Substance & Tx. History. Hx Alcohol Use: No. Hx Substance Use: Yes. Substance Use Type: Heroin, Marijuana. - Substances abused. Heroin. Substance route: Inhalation. Frequency: Daily. Amount used: 1 bundle. Age of first use: 20. Date of last use: 05/08/19. * * Marijuana/Hashish. Substance route: Smoking. Frequency: Daily. Amount used : $20. Age of first use: 9. Date of last use: 05/08/19 Medical History: Remarkable for bronchial asthma. Psychiatric History: Patient denies history of psychiatric hospitalizations. Reportedly diagnosed with Bipolar Disorder and ADHD. Onset of emotional disturbances : age [age]. Mr Payne used to be prescribed depakote + seroquel. He has attended [facility] (2016) for methadone maintenance (80 mg/day). Dropped out treatment three years ago. Denies recent history of OPD care. No reported history of suicide attempts. Physical/Sexual Abuse/Trauma History: Patient denies. Additional Comment: Urine drug screen results: THC-Marijuana, MOP-Opiates, OXY- Oxycodone. Noted. Mental Status Exam - Mental Status Exam Alert and Oriented to: Time, Place, Person Cognitive Function: Good Patient Appearance: Unkempt, Disheveled Mood: Sad, Nervous, Withdrawn Affect: Mood Congruent, Constricted Patient Behavior: Fatigued, Cooperative (marginally cooperative) Speech Pattern: Clear, Delayed (non spontaneous) Voice Loudness: Moderately Soft/Quiet Thought Process: Goal Oriented Thought Disorder: Not Present Hallucinations: Denies Suicidal Ideation: Denies Homicidal Ideation: Denies Insight/Judgement: Poor Sleep: Well Appetite: Poor, Weight loss Muscle strength/Tone: Normal Gait/Station: Other (not observed; in bed for entire interview) Psychiatric Findings - Problem List ([place] 1, 2,3) (1) Opioid dependence with withdrawal Current Visit: Yes Status: Acute (2) Marijuana dependence Current Visit: Yes Status: Chronic (3) Nicotine dependence Current Visit: Yes Status: Chronic Qualifiers: Nicotine product type: cigarettes Substance use status: uncomplicated Qualified Code(s): F17.210 - Nicotine dependence, cigarettes, uncomplicated (4) Substance induced mood disorder Current Visit: Yes Status: Chronic (5) History of bipolar disorder Current Visit: Yes Status: Chronic (6) Non-compliance Current Visit: Yes Status: Chronic - Initial Treatment Plan Initial Treatment Plan: Psychoeducation. Sleep hygiene. Detoxification. Support. NA meetings. Observation.
[2019-05-09] MEDS: hydrOXYzine PAMOATE 25 MG CAPSULE (FP) PO PRN ×2 (13:13→22:34)
[2019-05-09] MEDS: THIAMINE HCL 100 MG TABLET (FP) PO SCH (22:30)
[2019-05-09] MEDS: MELATONIN 5 MG TABLETS PO PRN (22:31)
[2019-05-09] MEDS: METHOCARBAMOL 500 MG TABLET PO PRN (22:32)
[2019-05-10] MEDS ORDERED: predniSONE 20 MG TABLET (UD) PO ONE (10:00)
[2019-05-10] MEDS ORDERED: METHADONE HCL 10 MG TABLET (FOR DETOX USE ONLY) PO ONE (10:00)
[2019-05-10] MEDS: NICOTINE 14 MG/24 HOURS TOPICAL PATCH TD SCH (10:17)
[2019-05-10] MEDS: PRENATAL VITAMINS W/ FOLIC ACID TABLET (FP) PO SCH (10:17)
[2019-05-10] MEDS: hydrOXYzine PAMOATE 25 MG CAPSULE (FP) PO PRN ×2 (10:20→17:42)
--- NOTE | 2019-05-10 10:40 | PN ---
BHS COWS - Scale Resting Pulse: 0= [place] 80 or Below Sweatin= No chills or Flushing Restless Observation: 0= Sits Still Pupil Size: 0= Normal to Room Light Bone or Joint Aches: 1= Mild Discomfort Runny Nose/ Eye Tearin= Nasal Congestion GI Upset > 30mins: 1= Stomach Cramp Tremor Observation of Outstretched Hands: 1= Tremor [place], Not Seen Yawning Observation: 1= 1-2x During Session Anxiety or Irritability: 2=Irritable/Anxious Goose Flesh Skin: 0=Smooth Skin COWS Score: 7 BHS Progress Note (SOAP) Subjective: 29 years old male [facility] was admitted on 05/08/19 for acute opiate withdrawal sx management doing well with methadone detox regimen sleep better at night cooperative mild agitation Objective: 05/10/19 10:41 Vital Signs Temperature 97.7 F 05/10/19 09:15 Pulse Rate 61 05/10/19 09:15 Respiratory Rate 18 05/10/19 09:15 Blood Pressure 115/65 05/10/19 09:15 O2 Sat by Pulse Oximetry (%) Laboratory Last Values WBC 6.3 K/mm3 (4.0-10.0) 05/09/19 08:00 RBC 4.57 M/mm3 (4.00-5.60) 05/09/19 08:00 Hgb 13.8 GM/dL (11.7-16.9) 05/09/19 08:00 Hct 42.6 % (35.4-49) 05/09/19 08:00 MCV 93.2 fl (80-96) 05/09/19 08:00 MCH 30.3 pg (25.7-33.7) 05/09/19 08:00 MCHC 32.5 g/dl (32.0-35.9) 05/09/19 08:00 RDW 14.0 % (11.9-15.9) 05/09/19 08:00 Plt Count 273 K/MM3 (134-434) D 05/09/19 08:00 MPV 8.9 fl (7.5-11.1) 05/09/19 08:00 Sodium 139 mmol/L (136-145) 05/09/19 08:00 Potassium 4.9 mmol/L (3.5-5.1) 05/09/19 08:00 Chloride 106 mmol/L (98-107) 05/09/19 08:00 Carbon Dioxide 28 mmol/L (21-32) 05/09/19 08:00 Anion Gap 6 MMOL/L (8-16) L 05/09/19 08:00 BUN 10.2 mg/dL (7-18) 05/09/19 08:00 Creatinine 0.8 mg/dL (0.55-1.3) 05/09/19 08:00 Est GFR (CKD-EPI)AfAm 139.91 05/09/19 08:00 Est GFR (CKD-EPI)NonAf 120.72 05/09/19 08:00 Random Glucose 100 mg/dL (74-106) 05/09/19 08:00 Calcium 8.9 mg/dL (8.5-10.1) 05/09/19 08:00 Total Bilirubin 0.3 mg/dL (0.2-1) 05/09/19 08:00 AST 10 U/L (15-37) L 05/09/19 08:00 ALT 21 U/L (13-61) 05/09/19 08:00 Alkaline Phosphatase 97 U/L (45-117) 05/09/19 08:00 Total Protein 6.9 g/dl (6.4-8.2) 05/09/19 08:00 Albumin 3.7 g/dl (3.4-5.0) 05/09/19 08:00 RPR Titer Nonreactive (NONREACTIVE) 05/09/19 08:00 lab noted Assessment: 05/10/19 10:41 opiate withdrawal sx Plan: continue methadone detox regimen
--- NOTE | 2019-05-10 11:33 | EKG ---
Test Reason : Blood Pressure : / mmHG Vent. Rate : 059 BPM Atrial Rate : 059 BPM P-R Int : 196 ms QRS Dur : 098 ms QT Int : 438 ms P-R-T Axes : 068 093 067 degrees QTc Int : 433 ms SINUS BRADYCARDIA RIGHTWARD AXIS SEPTAL INFARCT , AGE UNDETERMINED ABNORMAL ECG WHEN COMPARED WITH ECG OF 27-MAR-2017 15:57, SEPTAL INFARCT IS NOW PRESENT Confirmed by ZECHARIAH GAGNON, HAYDEE ([id number]) on 05/10/2019 11:33:32 AM Referred By: NIKO Confirmed By:HAYDEE APPLE MD
[2019-05-10] MEDS: METHOCARBAMOL 500 MG TABLET PO PRN ×2 (14:44→22:13)
[2019-05-10] MEDS: THIAMINE HCL 100 MG TABLET (FP) PO SCH (22:12)
[2019-05-10] MEDS: MELATONIN 5 MG TABLETS PO PRN (22:13)
[2019-05-11] MEDS ORDERED: METHADONE HCL 10 MG TABLET (FOR DETOX USE ONLY) ONE (09:14)
[2019-05-11] MEDS ORDERED: METHADONE HCL 5 MG TABLET (FOR DETOX USE ONLY) ONE (09:15)
[2019-05-11] MEDS ORDERED: ONDANSETRON *ODT* 4 MG TABLET SL ONE (09:50)
[2019-05-11] MEDS: PRENATAL VITAMINS W/ FOLIC ACID TABLET (FP) PO SCH (09:53)
[2019-05-11] MEDS ORDERED: predniSONE 10 MG TABLET (UD) PO ONE (10:00)
[2019-05-11] MEDS ORDERED: METHADONE (DETOX) 10 MG, METHADONE (DETOX) 5 MG PO ONE (10:00)
[2019-05-11] MEDS: NICOTINE 14 MG/24 HOURS TOPICAL PATCH TD SCH (11:06)
--- NOTE | 2019-05-11 11:49 | PN ---
BHS COWS - Scale Resting Pulse: 0= [place] 80 or Below Sweatin= Chills/Flushing Restless Observation: 0= Sits Still Pupil Size: 0= Normal to Room Light Bone or Joint Aches: 0= None Runny Nose/ Eye Tearin= None GI Upset > 30mins: 2= Nausea/Diarrhea (no diarrhea) Tremor Observation of Outstretched Hands: 1= Tremor [place], Not Seen Yawning Observation: 0= None Anxiety or Irritability: 1=Feels Anxious/Irritable Goose Flesh Skin: 0=Smooth Skin COWS Score: 5 BHS Progress Note (SOAP) Subjective: feeling nausea zofran 4 mg sl x 1 observe patient resting in bed comfortably no vomiting Objective: 05/11/19 12:13 Vital Signs Temperature 98.6 F 05/11/19 09:14 Pulse Rate 73 05/11/19 09:14 Respiratory Rate 18 05/11/19 09:14 Blood Pressure 114/74 05/11/19 09:14 O2 Sat by Pulse Oximetry (%) Laboratory Last Values WBC 6.3 K/mm3 (4.0-10.0) 05/09/19 08:00 RBC 4.57 M/mm3 (4.00-5.60) 05/09/19 08:00 Hgb 13.8 GM/dL (11.7-16.9) 05/09/19 08:00 Hct 42.6 % (35.4-49) 05/09/19 08:00 MCV 93.2 fl (80-96) 05/09/19 08:00 MCH 30.3 pg (25.7-33.7) 05/09/19 08:00 MCHC 32.5 g/dl (32.0-35.9) 05/09/19 08:00 RDW 14.0 % (11.9-15.9) 05/09/19 08:00 Plt Count 273 K/MM3 (134-434) D 05/09/19 08:00 MPV 8.9 fl (7.5-11.1) 05/09/19 08:00 Sodium 139 mmol/L (136-145) 05/09/19 08:00 Potassium 4.9 mmol/L (3.5-5.1) 05/09/19 08:00 Chloride 106 mmol/L (98-107) 05/09/19 08:00 Carbon Dioxide 28 mmol/L (21-32) 05/09/19 08:00 Anion Gap 6 MMOL/L (8-16) L 05/09/19 08:00 BUN 10.2 mg/dL (7-18) 05/09/19 08:00 Creatinine 0.8 mg/dL (0.55-1.3) 05/09/19 08:00 Est GFR (CKD-EPI)AfAm 139.91 05/09/19 08:00 Est GFR (CKD-EPI)NonAf 120.72 05/09/19 08:00 Random Glucose 100 mg/dL (74-106) 05/09/19 08:00 Calcium 8.9 mg/dL (8.5-10.1) 05/09/19 08:00 Total Bilirubin 0.3 mg/dL (0.2-1) 05/09/19 08:00 AST 10 U/L (15-37) L 05/09/19 08:00 ALT 21 U/L (13-61) 05/09/19 08:00 Alkaline Phosphatase 97 U/L (45-117) 05/09/19 08:00 Total Protein 6.9 g/dl (6.4-8.2) 05/09/19 08:00 Albumin 3.7 g/dl (3.4-5.0) 05/09/19 08:00 RPR Titer Nonreactive (NONREACTIVE) 05/09/19 08:00 lab noted Assessment: 05/11/19 12:13 opiate withdrawal sx Plan: continue methadone detox regimen
--- NOTE | 2019-05-11 12:50 | PN ---
[facility] Progress Note Note: patient would like to see psychiatrist for medication,psychiatric reevaluation ordered
[2019-05-11] MEDS: hydrOXYzine PAMOATE 25 MG CAPSULE (FP) PO PRN (16:55)
--- NOTE | 2019-05-11 17:04 | PN ---
[facility] Progress Note Note: Vital Signs Temperature 98.8 F 05/11/19 13:19 Pulse Rate 50 L 05/11/19 13:19 Respiratory Rate 18 05/11/19 13:19 Blood Pressure 109/61 05/11/19 13:19 O2 Sat by Pulse Oximetry (%) Patient refused nicotine patch earlier today and requested patch at this time one time order place for today patient to remove patch before bed continue to monitor
[2019-05-11] MEDS ORDERED: NICOTINE 14 MG/24 HOURS TOPICAL PATCH TD ONE (17:15)
[2019-05-11 17:51] VITALS: BP 105/60; PULSE 53; TEMP 97.6
--- NOTE | 2019-05-11 17:55 | PN ---
[facility] Progress Note Note: Patient requesting to leave AMA. discussed with patient the risks of leaving when not completing detox. He still decided to leave. Patient said he wants to go home, smoke a cigarette and a blunt of marijuana.
[2019-05-12] MEDS ORDERED: predniSONE 5 MG TABLET (UD) PO ONE (10:00)
[2019-05-12] MEDS ORDERED: METHADONE HCL 10 MG TABLET (FOR DETOX USE ONLY) PO ONE (10:00)
[2019-05-13] MEDS ORDERED: METHADONE HCL 5 MG TABLET (FOR DETOX USE ONLY) PO ONE (06:00)
== END 2019-05-11 18:02 | disposition left against medical advice (07) | DRG 770 ==
LOC: YASAS 11:25 → Y6N 16:23 → Y3N 05-09 10:50
PROVIDERS: ADMIT Surgery; ATTEND Surgery
PROC: HZ2ZZZZ Detoxification Services for Substance Abuse Treatment (ICD-10-PCS; principal; 2019-05-08)
DX: F11.23 Opioid dependence with withdrawal (principal); F12.20 Cannabis dependence, uncomplicated; F17.210 Nicotine dependence, cigarettes, uncomplicated; F19.24 Other psychoactive substance dependence with psychoactive substance-induced mood disorder; J45.909 Unspecified asthma, uncomplicated; Z91.19 Patient's noncompliance with other medical treatment and regimen; Z91.013 Allergy to seafood
CPT/HCPCS: 36415; 71046-TC-FY; 80053; 85027; 86593; 93005; 93010; Q0162